=== PATIENT | male | born 1955 | race Caucasian/White ===

== ENCOUNTER 2020-10-12 12:27 | Observation (INO) ==
[2020-10-12 13:33] LABS: Basophils % 0.2 %; Eosinophils % 0.3 %; Hemoglobin 15.6 g/dL (12.9-16.9); Immature Granulocytes % 0.3 % (0-4); Lymphocytes # 1.4 K/mcL (0.6-4.6); Lymphocytes % 11.4 %; Mean Corpuscular HGB Conc 31.8 g/dL (31.6-35.5); Mean Corpuscular Hemoglobin 27.6 pg (28.0-33.3); Mean Corpuscular Volume 86.7 fL (83.0-100.0); Mean Platelet Volume 10.1 fL (9.4-12.4); Monocytes % 8.3 %; Neutrophils # 9.5 K/mcL (1.6-8.9); Platelet Count 187 K/mcL (140-400); Red Blood Count 5.65 M/mcL (4.19-5.50); Red Cell Distribution Width 13.6 % (11.5-14.5); Segmented Neutrophils % 79.5 %
[2020-10-12 13:43] LABS: Albumin 4.4 g/dL (3.5-5.7); Albumin/Globulin Ratio 1.5 (1.1-2.2); Bilirubin,Total 0.7 mg/dL (0.3-1.0); Calcium 9.6 mg/dL (8.6-10.3); Globulin 2.9 g/dL (2.4-3.5); Potassium 3.9 mEq/L (3.5-5.1); Total Protein 7.3 g/dL (6.4-8.9)
[2020-10-12 14:27] LABS: Bacteria,Urine Few per hpf (None-Few); Bilirubin,Urine Negative (Negative); Blood,Urine Small (Negative); Clarity,Urine Clear (Clear); Color,Urine Light-Yellow (Yellow); Glucose,Urine (UA) Normal (Normal); Ketones,Urine 10 mg/dL (Negative); Leukocyte Esterase,Urine Negative (Negative); Mucus,Urine Few per lpf (None-Few); Nitrite,Urine Negative (Negative); Protein,Urine 50 mg/dL (Neg-Trace); RBC,Urine 15-30 per hpf (0-3); Specific Gravity,Urine 1.024 (1.010-1.025); Sperm,Urine Present (None Seen); Squamous Epithelial Cell,Urine Few per hpf (None-Few); Urobilinogen,Urine Normal (Normal); WBC,Urine 0-3 per hpf (0-3)
[2020-10-12] MEDS ORDERED: *HR* HYDROmorphone (PF) 1 MG/ML SYRINGE IVP ONE ×2 (14:45→18:19)
[2020-10-12] MEDS ORDERED: MOM Conc 10 ML UD.LIQ PO PRN (16:05)
[2020-10-12] MEDS ORDERED: Ondansetron ODT 4 MG TAB.RAPDIS SL PRN (16:05)
[2020-10-12] MEDS ORDERED: Naloxone 0.4 MG/ML INJ IVP PRN (16:05)
[2020-10-12] MEDS ORDERED: Melatonin 3 MG TABLET PO PRN (16:05)
[2020-10-12] MEDS: Ketorolac 15 MG/ML VIAL IVP PRN (18:58)
[2020-10-12] MEDS: *HR* HYDROcodone/Acet 5/325 mg TABLET PO PRN (21:08)
[2020-10-13] MEDS: Ketorolac 15 MG/ML VIAL IVP PRN ×2 (03:04→09:20)
[2020-10-13] MEDS: *HR* HYDROcodone/Acet 5/325 mg TABLET PO PRN ×4 (04:00→19:48)
[2020-10-13 06:03] LABS: Basophils % 0.2 %; Eosinophils # 0.1 K/mcL (0.0-0.6); Eosinophils % 0.6 %; Hematocrit 46.6 % (37.5-50.1); Hemoglobin 14.7 g/dL (12.9-16.9); Immature Granulocytes % 0.4 % (0-4); Lymphocytes # 1.5 K/mcL (0.6-4.6); Lymphocytes % 12.8 %; Mean Corpuscular HGB Conc 31.5 g/dL (31.6-35.5); Mean Corpuscular Hemoglobin 27.5 pg (28.0-33.3); Mean Corpuscular Volume 87.1 fL (83.0-100.0); Mean Platelet Volume 10.1 fL (9.4-12.4); Monocytes % 8.5 %; Neutrophils # 9.1 K/mcL (1.6-8.9); Platelet Count 200 K/mcL (140-400); Red Blood Count 5.35 M/mcL (4.19-5.50); Red Cell Distribution Width 13.8 % (11.5-14.5); Segmented Neutrophils % 77.5 %; White Blood Count 11.7 K/mcL (4.3-11.1)
[2020-10-13 06:25] LABS: Calcium 9.3 mg/dL (8.6-10.3)
[2020-10-13] MEDS ORDERED: Aspirin Enteric Coated 81 MG Tablet PO SCH (09:00)
[2020-10-13] MEDS ORDERED: cefTRIAXone 1,000 MG in Water for inj. (sterile) 10 ML IVP SCH (09:00)
[2020-10-13] MEDS ORDERED: Isovue-300 50ML VIAL ONE (16:53)
[2020-10-13] MEDS ORDERED: Ringers Solution, Lactated 1,000 ML IVC SCH ×2 (17:00→18:37)
[2020-10-13] MEDS ORDERED: *HR* Propofol 200 MG/20 ML VIAL IVP ONE (17:07)
[2020-10-13] MEDS ORDERED: *HR* FentaNYL (PF) 100 MCG/2 ML VIAL ONE (17:07)
[2020-10-13] MEDS ORDERED: *HR* Midazolam HCl 2 MG/2 ML VIAL ONE (17:07)
[2020-10-13] MEDS ORDERED: Ondansetron 4 MG/2 ML VIAL ONE (17:07)
[2020-10-13] MEDS ORDERED: Dexamethasone 4 MG/ML VIAL ONE (17:07)
[2020-10-13] MEDS ORDERED: Lidocaine -MPF 2% 2 ML VIAL ONE (17:07)
[2020-10-13] MEDS ORDERED: *HR* Meperidine 25 MG/ML SYRINGE IVP PRN (17:16)
[2020-10-13] MEDS ORDERED: Ondansetron 4 MG/2 ML VIAL IVP PRN (17:16)
[2020-10-13] MEDS ORDERED: *HR* HYDROmorphone (PF) 1 MG/ML SYRINGE IVP PRN (17:16)
[2020-10-13] MEDS ORDERED: Naloxone 0.4 MG/ML INJ IVP PRN (18:37)
[2020-10-13] MEDS ORDERED: Ondansetron ODT 4 MG TAB.RAPDIS SL PRN (18:37)
[2020-10-13] MEDS ORDERED: MOM Conc 10 ML UD.LIQ PO PRN (18:37)
[2020-10-13] MEDS ORDERED: Melatonin 3 MG TABLET PO PRN (18:37)
[2020-10-14 03:20] LABS: Basophils % 0.1 %; Hematocrit 45.5 % (37.5-50.1); Hemoglobin 14.4 g/dL (12.9-16.9); Immature Granulocytes % 0.2 % (0-4); Lymphocytes # 0.6 K/mcL (0.6-4.6); Lymphocytes % 6.4 %; Mean Corpuscular HGB Conc 31.6 g/dL (31.6-35.5); Mean Corpuscular Hemoglobin 28.1 pg (28.0-33.3); Mean Corpuscular Volume 88.7 fL (83.0-100.0); Mean Platelet Volume 10.6 fL (9.4-12.4); Monocytes # 0.6 K/mcL (0.0-1.3); Monocytes % 5.7 %; Neutrophils # 8.7 K/mcL (1.6-8.9); Platelet Count 219 K/mcL (140-400); Red Blood Count 5.13 M/mcL (4.19-5.50); Red Cell Distribution Width 13.3 % (11.5-14.5); Segmented Neutrophils % 87.6 %
[2020-10-14 03:38] LABS: Potassium 4.4 mEq/L (3.5-5.1)
[2020-10-14 03:39] LABS: Calcium 9.2 mg/dL (8.6-10.3); Magnesium 2.1 mg/dL (1.6-2.6); Phosphorous 3.7 mg/dL (2.7-4.5)
[2020-10-14] MEDS: *HR* HYDROcodone/Acet 5/325 mg TABLET PO PRN ×2 (04:00→20:15)
[2020-10-14] MEDS ORDERED: Aspirin Enteric Coated 81 MG Tablet PO SCH (09:00)
[2020-10-14] MEDS ORDERED: Pantoprazole 40 MG VIAL IVP SCH (11:00)
[2020-10-14 12:32] LABS: Hematocrit 45.5 % (37.5-50.1); Hemoglobin 14.2 g/dL (12.9-16.9)
[2020-10-14] MEDS: Pantoprazole 40 MG VIAL IVP SCH ×2 (12:32→18:06)
[2020-10-14 18:57] LABS: Hematocrit 47.2 % (37.5-50.1); Hemoglobin 14.9 g/dL (12.9-16.9)
[2020-10-15 02:41] LABS: Basophils % 0.4 %; Eosinophils # 0.2 K/mcL (0.0-0.6); Eosinophils % 1.7 %; Hematocrit 44.4 % (37.5-50.1); Hemoglobin 14.1 g/dL (12.9-16.9); Immature Granulocytes % 0.4 % (0-4); Lymphocytes # 2.2 K/mcL (0.6-4.6); Lymphocytes % 21.8 %; Mean Corpuscular HGB Conc 31.8 g/dL (31.6-35.5); Mean Corpuscular Hemoglobin 27.8 pg (28.0-33.3); Mean Corpuscular Volume 87.6 fL (83.0-100.0); Mean Platelet Volume 10.1 fL (9.4-12.4); Monocytes # 0.7 K/mcL (0.0-1.3); Neutrophils # 6.8 K/mcL (1.6-8.9); Platelet Count 216 K/mcL (140-400); Red Blood Count 5.07 M/mcL (4.19-5.50); Red Cell Distribution Width 13.5 % (11.5-14.5); Segmented Neutrophils % 68.7 %; White Blood Count 9.9 K/mcL (4.3-11.1)
[2020-10-15 03:00] LABS: BUN/Creatinine Ratio 21 (6-26); Blood Urea Nitrogen 24 mg/dL (8-23); Calcium 9.1 mg/dL (8.6-10.3); Carbon Dioxide 26 mEq/L (23-29); Chloride 103 mEq/L (98-107); Glucose 123 mg/dL (70-105); Magnesium 1.9 mg/dL (1.6-2.6); Osmolality,Calculated 289 (280-300); Potassium 4.2 mEq/L (3.5-5.1); Sodium 137 mEq/L (136-145); eGFR For African Americans > 60 (> 60); eGFR For Non-African Americans > 60 (> 60)
[2020-10-15] MEDS: *HR* HYDROcodone/Acet 5/325 mg TABLET PO PRN (04:15)
[2020-10-15] MEDS: Pantoprazole 40 MG VIAL IVP SCH (05:52)
[2020-10-15 11:33] VITALS: BP 175/102
[2020-10-15] MEDS ORDERED: Lidocaine -MPF 2% 2 ML VIAL ONE ×2 (11:34→12:10)
[2020-10-15] MEDS ORDERED: *HR* Propofol 200 MG/20 ML VIAL IVP ONE (11:34)
[2020-10-17 10:50] LABS: Calculi Mass 34 mg
== END 2020-10-15 14:56 | disposition home or self-care (01) ==
LOC: EMEROOARM 12:27 → 3ANU 12:27 → SUATTDRO 15:39 → 3ANU 16:59
PROVIDERS: ADMIT Family Medicine; ATTEND Internal Medicine
PROC: ENDOEBX (2020-10-15 09:50)